=== PATIENT | female | born 1980 | race Caucasian/White ===

== ENCOUNTER 2016-11-08 13:47 | Inpatient (IN) | payer OTHER ==
[~2016-11-08] VITALS: Ht 160 cm; Wt 68.0 kg
--- NOTE | ~2016-11-08 | HC ---
[facility] [place] [address] CONSULTATION Name: CLAYTON JIN Room #: 542-P ADM IN M.R.#: [id number] Admission: 11/08/16 Attend Phys: Sixto Izquierdo MD Discharge: Date of : 78 Report #: [id number] THIS REPORT FOR: //name// CC: [facility] physician/PCP Sixto Izquierdo DATE OF SERVICE: 11/09/2016 DATE OF SERVICE: 11/09/2016 REFERRING PROVIDER: Sixto Izquierdo MD REASON FOR CONSULTATION: Abdominal pain and colitis. HISTORY OF PRESENT ILLNESS: The patient is a 36-year-old female with a history of chronic constipation and frequent urinary tract infections, who is on Keflex chronically, who presented to the Emergency Room yesterday with increasing abdominal pain. The patient uses tap water enemas as needed at home for chronic constipation and has only taken Dulcolax in the past for her complaints which she stopped due to it causing her to have headaches. The patient does have chronic back pain and is on tramadol and hydrocodone as well. While in the Emergency Room, the patient was evaluated with laboratories and a CT scan of the abdomen and pelvis and while her labs were within normal limits. Her CT scan showed thickening and inflammation of the mid transverse colon without perforation or abscess. In addition, there was some ureteral thickening along the upper bladder, which was unusual in presentation and was of unknown etiology. Nonetheless, the patient has been admitted for IV fluids and antibiotics and I have been asked to evaluate. PAST MEDICAL HISTORY: Chronic back pain, constipation and pelvic inflammatory disease, frequent urinary tract infections, prior hepatitis B. PAST SURGICAL HISTORY: Appendectomy, hysterectomy and tubal ligation. HOME MEDICATIONS: Tramadol, Keflex, [place], estradiol, Phenergan, Augmentin and Movantik. ALLERGIES: CLARITHROMYCIN, FLAGYL and MORPHINE. SOCIAL HISTORY: The patient does not utilize tobacco, alcohol or illicit drugs. FAMILY HISTORY: Reviewed and noncontributory; however, her sister did have 4 episodes of diverticulitis. REVIEW OF SYSTEMS: GENERAL: The patient states subjective fevers and chills at home, but no weight [facility] [address] [place] [address] CONSULTATION Name: CLAYTON JIN Abner Room #: 542-P [facility] IN M.R.#: [id number] Admission: 11/08/16 Attend Phys: Sixto Izquierdo MD Discharge: Date of : 78 Report #: [id number]. HEENT: No history of change in vision, change in hearing. NECK: No swelling or difficulty swallowing. HEART: No chest pain or palpitations. LUNGS: No cough or shortness of breath. ABDOMEN: Abdominal pain and constipation. GENITOURINARY: No dysuria or hematuria. ENDOCRINE: No polyuria or polydipsia. HEMATOLOGIC: No history of bleeding or easy bruising. EXTREMITIES: No history of weakness or limited range of motion. NEUROLOGIC: No history of syncope or near syncopal episodes. SKIN AND INTEGUMENT: No history of abnormal lesions or moles. PSYCHIATRIC: No history of anxiety or depression. PHYSICAL EXAMINATION: VITAL SIGNS: Temperature 36.7, pulse 98, respirations 16, blood pressure 94/59. GENERAL: Alert, in no acute distress. HEENT: Normocephalic, atraumatic. Pupils equal, round, reactive to light. NECK: Supple, without lymphadenopathy. Trachea midline. HEART: Regular rate and rhythm. LUNGS: Clear to auscultation bilaterally. ABDOMEN: Soft, nondistended. She does have minimal tenderness to palpation around the umbilicus, but does not have any guarding, rebound or peritoneal signs or symptoms and has normoactive bowel sounds. GENITOURINARY: Normal external female genitalia. EXTREMITIES: No clubbing, cyanosis or edema. NEUROLOGIC: Cranial nerves 2-12 are grossly intact. PSYCHIATRIC: Normal mood and affect. SKIN AND INTEGUMENT: No abnormal lesions or moles. LABORATORY AND X-RAY DATA: CBC shows white blood cell count of 8.8 thousand, hemoglobin 12.5, platelets 215,000. Differential on admission was largely normal. Wet prep was negative. Urinalysis was negative. Creatinine 0.8. Liver function enzymes are normal. Lipase is normal. CT scan of the abdomen and pelvis as per HPI shows constipation throughout the colon; however, there is focal inflammatory changes over 6 cm distance of the mid transverse colon without perforation or free air or abscess. There is inflammation of the urachus from the apex of the bladder to the umbilicus. ASSESSMENT AND PLAN: A 36-year-old female with what appears to be diverticulitis arising from a diverticulum seen on the coronal views of her CT scan with focal inflammatory changes. I see no evidence of perforation or abscess formation and as such will continue antibiotic therapy, IV fluid rehydration and she will likely improve with conservative therapy at this time. The patient should have gastroenterology evaluate, as she will necessitate colonoscopy in 6 weeks' time after resolution of her inflammation. If she does [address] [place] [address] CONSULTATION Name: CLAYTON JIN Room #: 542-P ADM IN M.R.#: [id number] Admission: 11/08/16 Attend Phys: Sixto Izquierdo MD Discharge: Date of : 78 Report #: [id number] decompensate, she may necessitate more urgent surgical intervention. At this time, I recommend continuation of conservative management as current. I sincerely appreciate this consult. I will follow closely and leave any further recommendations in the patient's chart as appropriate. <ELECTRONICALLY SIGNED> By: Tl Dougherty MD, FACS 11/10/16 1419 [id number] Tl Dougherty MD, FACS /nt
--- NOTE | ~2016-11-08 | HC ---
[facility] [place] [address] CONSULTATION Name: CLAYTON JIN Room #: 542-P ADM IN .R.#: [id number] Admission: 11/08/16 Attend Phys: Sixto Izquierdo MD Discharge: Date of : 78 Report #: [id number] THIS REPORT FOR: //name// CC: [facility] physician/PCP Sixto Izquierdo REASON FOR CONSULTATION: I was asked to evaluate concerning diverticulitis. HISTORY OF PRESENT ILLNESS: The patient was a 36-year-old who has a history of chronic constipation and recurrent urinary tract infections. She has been on suppressive antibiotics with cephalexin. She stated over the last 48 hours after straining at the stool, developed acute onset of diffuse abdominal pain. No nausea or vomiting. She has not had a stool yet. Denies any dysuria. Presents to the Emergency Room with significant abdominal pain. Laboratory studies were fairly unremarkable from the Emergency Room. CT scan imaging, however, showed transverse colon diverticulitis changes with some free fluid in the pelvis. Did not find anything consistent with an abscess. She is on Levaquin. She continues to have abdominal pain. ALLERGIES: MORPHINE, METRONIDAZOLE, CLARITHROMYCIN. MEDICATIONS: As noted on her OCT. She did receive 1 dose of Augmentin. PAST MEDICAL HISTORY: Recurrent urinary tract infections, endometriosis, pelvic inflammatory disease, hysterectomy with bilateral salpingo-oophorectomy, chronic constipation, pyelonephritis. SOCIAL HISTORY: Nonsmoker, no significant alcohol intake or HIV risk factors. She has 5 children. REVIEW OF SYSTEMS: No rashes, no headache, cough or sputum production. She does have some right-sided flank discomfort. PHYSICAL EXAMINATION: VITAL SIGNS: Afebrile and hemodynamically stable. GENERAL: She is alert and cooperative and pleasant, in some distress when tried to rollover in bed, otherwise stable. HEENT: Unremarkable. CHEST: Clear. HEART: Regular, without murmur. ABDOMEN: Diffusely tender with guarding. No definite rebound. Bowel sounds present. EXTREMITIES: Unremarkable. Mild right CVA tenderness. LABORATORY STUDIES: Sodium 141, potassium 3.8, bicarbonate 25, creatinine 0.8. Liver function test normal. Hemoglobin 12.5, white count 8.8, no bands, platelet count 215,000. Urinalysis unremarkable. [place] [address] CONSULTATION Name: CLAYTON JIN Room #: 542-P [facility] IN [facility].#: [id number] Admission: 11/08/16 Attend Phys: Sixto Izquierdo MD Discharge: Date of : 78 Report #: [id number] IMPRESSION: A 36-year-old with chronic constipation, diverticulitis changes with diffuse abdominal pain. Pain seems a bit out or proportion and to her laboratory studies. PLAN: Would recommend continuing IV antibiotic therapy to include both aerobic and anaerobic bacteria. Await GI evaluation. Would have General Surgery evaluate. <ELECTRONICALLY SIGNED> By: Itz Bolaños MD 11/09/16 [id number] Itz Bolaños MD /nt
[~2016-11-08 13:47] MED LIST: CIPROFLOXACIN500 M1 PO; DOXYCYCLINE 10100 MG PO; IBUPROFEN 200200 M1 PO; IBUPROFEN 800800 M1 PO; NOHOMEMEDICATIONS; NORCO 5-325 TA1 EACH PO; TRAMADOL 50 MG50 MG; ULTRAM 50MG TAB50 MG PO; XANAX 1 MG TABLE1 MG PO; ZOFRAN4 MG PO
[2016-11-08 13:51] VITALS: BP 123/84
[2016-11-08] MEDS ORDERED: KEFLEX250 MG (14:04)
[2016-11-08] MEDS ORDERED: TRAMADOL 50 MG50 MG PO (14:04)
[2016-11-08] MEDS ORDERED: NORCO 10-325 T1 EACH PO (14:05)
[2016-11-08] MEDS ORDERED: ESTRACE2 M3 PO (14:05)
[2016-11-08 15:15] LABS: ABSOLUTE NEUTROPHILS 6.7 thou/uL (1.4-8.2); BASOPHILS 0.3 % (0.0-2.0); EOSINOPHILS 1.2 % (0.0-3.0); HEMATOCRIT 40.8 % (37.0-47.0); HEMOGLOBIN 13.9 gm/dL (12.0-15.0); LYMPHOCYTES 20.9 % (24.0-44.0); MCH 30.8 pg (26.0-34.0); MCHC 34.1 g/dL (28.0-37.0); MCV 90.3 fL (80.0-100.0); MONOCYTES 7.9 % (1.0-8.0); PLATELET COUNT 231 thou/uL (150-400); POLYS 69.7 % (36.0-66.0); RBC 4.52 mil/uL (4.20-5.00); RDW 12.7 % (10.5-14.5); WBC 9.5 thou/uL (4.0-11.0)
[2016-11-08 15:16] LABS: MANUAL DIFF NO
[2016-11-08 15:23] LABS: CREATININE 0.8 mg/dL (0.6-1.0); POTASSIUM 4.1 mmol/L (3.5-5.1)
[2016-11-08 15:52] LABS: URINE BILIRUBIN NEGATIVE (Negative); URINE BLOOD NEGATIVE (Negative); URINE COLOR YELLOW; URINE GLUCOSE-RANDOM* NEGATIVE (Negative); URINE KETONES NEGATIVE (Negative); URINE NITRITE NEGATIVE (Negative); URINE PROTEIN (DIPSTICK) NEGATIVE (Negative); URINE UROBILINOGEN 0.2 E.U./dl (0.2-1.0)
[2016-11-08] MEDS ORDERED: AUGMENTIN 875875 MG PO (17:40)
[2016-11-08] MEDS ORDERED: PHENERGAN 25 MG25 M1 PO (17:40)
[2016-11-08] MEDS ORDERED: MOVANTIK12.5 MG PO (17:44)
[2016-11-08 19:04] VITALS: BP 114/78
[2016-11-09] VITALS: BP 97/57
[2016-11-09 04:00] VITALS: BP 102/67
[2016-11-09 05:50] LABS: HEMOGLOBIN 12.5 gm/dL (12.0-15.0); MCH 30.7 pg (26.0-34.0); MCHC 33.9 g/dL (28.0-37.0); MCV 90.7 fL (80.0-100.0); RBC 4.08 mil/uL (4.20-5.00); RDW 13.1 % (10.5-14.5); WBC 8.8 thou/uL (4.0-11.0)
[2016-11-09 06:24] LABS: ALBUMIN 2.9 g/dL (3.4-5.0); CALCIUM 8.5 mg/dL (8.5-10.1); CREATININE 0.8 mg/dL (0.6-1.0); POTASSIUM 3.8 mmol/L (3.5-5.1); TOTAL BILIRUBIN 0.4 mg/dL (<0.1-1.0); TOTAL PROTEIN 6.1 g/dL (6.4-8.2)
[2016-11-09 09:48] VITALS: BP 94/59
[2016-11-09 16:48] VITALS: BP 93/58
[2016-11-09 18:06] LABS: CHLAMYDIA TRACHOMATIS-PCR Negative (Negative); NEISSERIA GONORRHEA-PCR Negative (Negative)
[2016-11-09 20:15] VITALS: BP 99/49
[2016-11-10 04:00] VITALS: BP 86/45
[2016-11-10 07:10] LABS: HEMATOCRIT 34.1 % (37.0-47.0); HEMOGLOBIN 11.5 gm/dL (12.0-15.0); MCH 30.8 pg (26.0-34.0); MCHC 33.6 g/dL (28.0-37.0); MCV 91.7 fL (80.0-100.0); RBC 3.71 mil/uL (4.20-5.00); RDW 13.1 % (10.5-14.5); WBC 5.4 thou/uL (4.0-11.0)
[2016-11-10 07:22] LABS: ALBUMIN 2.6 g/dL (3.4-5.0); CALCIUM 8.2 mg/dL (8.5-10.1); CREATININE 0.7 mg/dL (0.6-1.0); POTASSIUM 3.9 mmol/L (3.5-5.1); TOTAL BILIRUBIN 0.2 mg/dL (<0.1-1.0); TOTAL PROTEIN 5.7 g/dL (6.4-8.2)
[2016-11-10 08:30] VITALS: BP 93/60
[2016-11-10 16:00] VITALS: BP 103/60
[2016-11-10 19:25] VITALS: BP 96/53
[2016-11-11 05:45] VITALS: BP 114/68
[2016-11-11 06:19] LABS: ABSOLUTE NEUTROPHILS 1.4 thou/uL (1.4-8.2); BASOPHILS 0.7 % (0.0-2.0); EOSINOPHILS 3.6 % (0.0-3.0); HEMATOCRIT 32.9 % (37.0-47.0); HEMOGLOBIN 11.3 gm/dL (12.0-15.0); MCH 31.2 pg (26.0-34.0); MCHC 34.3 g/dL (28.0-37.0); MCV 90.8 fL (80.0-100.0); MONOCYTES 7.7 % (1.0-8.0); PLATELET COUNT 185 thou/uL (150-400); RBC 3.62 mil/uL (4.20-5.00); RDW 12.9 % (10.5-14.5); WBC 3.7 thou/uL (4.0-11.0)
[2016-11-11 06:21] LABS: MANUAL DIFF NO
[2016-11-11 07:30] VITALS: BP 98/59
[2016-11-11] MEDS ORDERED: NORCO 10-325 T1 EACH PO (10:34)
[2016-11-11 15:54] VITALS: BP 98/59
[2016-11-11 18:02] VITALS: BP 98/59
== END 2016-11-11 18:03 | disposition home or self-care (01) | DRG 392 ==
LOC: ER 13:47 → EROBS 18:01 → 5S 18:01
PROVIDERS: Family Medicine; Internal Medicine Gastroenterology; Nurse Practitioner Adult Health; Physician Assistant
DX: K57.32 Diverticulitis of large intestine without perforation or abscess without bleeding (principal); N39.0 Urinary tract infection, site not specified; K59.09 Other constipation; G89.29 Other chronic pain; R12 Heartburn; M54.9 Dorsalgia, unspecified; Z88.1 Allergy status to other antibiotic agents; Z88.6 Allergy status to analgesic agent; Z88.8 Allergy status to other drugs, medicaments and biological substances; Z87.440 Personal history of urinary (tract) infections; Z90.722 Acquired absence of ovaries, bilateral; Z79.899 Other long term (current) drug therapy; Z90.710 Acquired absence of both cervix and uterus; Z90.49 Acquired absence of other specified parts of digestive tract
CPT/HCPCS: 10086

== ENCOUNTER 2017-06-06 12:27 | Emergency (ER) | payer OTHER ==
[~2017-06-06] VITALS: Ht 160 cm; Wt 67.1 kg
[~2017-06-06 12:27] MED LIST changes: +AUGMENTIN 875875 MG PO; +ESTRACE2 M3 PO; +KEFLEX250 MG; +MOVANTIK12.5 MG PO; +NORCO 10-325 T1 EACH PO; +PHENERGAN 25 MG25 M1 PO; +TRAMADOL 50 MG50 MG PO
[2017-06-06 13:31] LABS: ABSOLUTE NEUTROPHILS 2.2 thou/uL (1.4-8.2); BASOPHILS 0.8 % (0.0-2.0); EOSINOPHILS 2.1 % (0.0-3.0); HEMATOCRIT 41.9 % (37.0-47.0); LYMPHOCYTES 37.1 % (24.0-44.0); MCH 30.5 pg (26.0-34.0); MCHC 33.4 g/dL (28.0-37.0); MCV 91.3 fL (80.0-100.0); MONOCYTES 7.7 % (1.0-8.0); PLATELET COUNT 262 thou/uL (150-400); POLYS 52.3 % (36.0-66.0); RBC 4.59 mil/uL (4.20-5.00); RDW 12.9 % (10.5-14.5); WBC 4.2 thou/uL (4.0-11.0)
[2017-06-06 13:32] LABS: MANUAL DIFF NO
[2017-06-06 13:39] LABS: CALCIUM 9.3 mg/dL (8.5-10.1); CREATININE 0.9 mg/dL (0.6-1.0); POTASSIUM 4.3 mmol/L (3.5-5.1)
[2017-06-06 13:45] LABS: TOTAL BILIRUBIN 0.2 mg/dL (<0.1-1.0); TOTAL PROTEIN 7.4 g/dL (6.4-8.2)
[2017-06-06 13:56] LABS: URINE BILIRUBIN NEGATIVE (Negative); URINE BLOOD NEGATIVE (Negative); URINE COLOR YELLOW; URINE GLUCOSE-RANDOM* NEGATIVE (Negative); URINE KETONES NEGATIVE (Negative); URINE LEUKOCYTES-REFLEX NEGATIVE (Negative); URINE PROTEIN (DIPSTICK) NEGATIVE (Negative); URINE SPECIFIC GRAVITY 1.015 (1.003-1.035); URINE UROBILINOGEN 0.2 E.U./dl (0.2-1.0)
[2017-06-06 14:15] LABS: SSA (PROTEIN CONFIRMATORY) NEGATIVE (Negative)
[2017-06-06] MEDS ORDERED: SENNA8.6 MG PO (15:09)
[2017-06-06] MEDS ORDERED: MACROBID 100 M100 M1 PO (15:16)
== END 2017-06-06 15:26 | disposition home or self-care (01) ==
LOC: ER 12:27
PROVIDERS: Physician Assistant
DX: R10.9 Unspecified abdominal pain (principal); K59.00 Constipation, unspecified; N80.9 Endometriosis, unspecified; Z90.710 Acquired absence of both cervix and uterus; Z88.0 Allergy status to penicillin; Z88.6 Allergy status to analgesic agent

== ENCOUNTER 2018-01-29 14:22 | Emergency (ER) | payer OTHER ==
[~2018-01-29] VITALS: Ht 160 cm; Wt 71.2 kg
--- NOTE | ~2018-01-29 | EKG ---
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
[~2018-01-29 14:22] MED LIST changes: +MACROBID 100 M100 M1 PO; +SENNA8.6 MG PO
[2018-01-29 16:03] LABS: ABSOLUTE NEUTROPHILS 3.1 thou/uL (1.4-8.2); WBC 5.3 thou/uL (4.0-11.0)
[2018-01-29 16:05] LABS: BASOPHILS 0.6 % (0.0-2.0); EOSINOPHILS 1.1 % (0.0-3.0); HEMATOCRIT 41.9 % (37.0-47.0); HEMOGLOBIN 14.2 gm/dL (12.0-15.0); LYMPHOCYTES 33.7 % (24.0-44.0); MCH 30.9 pg (26.0-34.0); MONOCYTES 7.3 % (1.0-8.0); PLATELET COUNT 282 thou/uL (150-400); POLYS 57.3 % (36.0-66.0)
[2018-01-29 16:16] LABS: ANION GAP 7 mmol/L (7-16); BUN 10 mg/dL (7-18); CHLORIDE 104 mmol/L (98-107); CO2 29 mmol/L (21-32); CREATININE 0.8 mg/dL (0.6-1.0); GLUCOSE 89 mg/dL (74-106); POTASSIUM 4.3 mmol/L (3.5-5.1); SODIUM 140 mmol/L (136-145)
[2018-01-29 16:25] LABS: ALBUMIN 4.3 g/dL (3.4-5.0); SGOT 28 U/L (15-37); SGPT 23 U/L (30-65); TOTAL BILIRUBIN 0.3 mg/dL (<0.1-1.0); TOTAL PROTEIN 8.4 g/dL (6.4-8.2); TROPONIN-I <0.06 ng/mL (<0.06)
[2018-01-29] MEDS ORDERED: XANAX 0.5 MG0.5 M1 PO (16:47)
== END 2018-01-29 17:04 | disposition home or self-care (01) ==
LOC: ER 14:22
PROVIDERS: Emergency Medicine
DX: R07.9 Chest pain, unspecified (principal); F41.9 Anxiety disorder, unspecified; Z90.710 Acquired absence of both cervix and uterus; Z88.1 Allergy status to other antibiotic agents

== ENCOUNTER 2018-03-15 13:16 | Emergency (ER) | payer OTHER ==
[~2018-03-15] VITALS: Ht 160 cm; Wt 68.0 kg
[~2018-03-15 13:16] MED LIST changes: +XANAX 0.5 MG0.5 M1 PO
[2018-03-15 14:03] LABS: URINE BILIRUBIN NEGATIVE (Negative); URINE BLOOD TRACE (Negative); URINE CLARITY CLEAR; URINE COLOR YELLOW; URINE GLUCOSE-RANDOM* NEGATIVE (Negative); URINE KETONES 1+ (Negative); URINE LEUKOCYTES-REFLEX NEGATIVE (Negative); URINE NITRITE-REFLEX NEGATIVE (Negative); URINE PROTEIN (DIPSTICK) NEGATIVE (Negative); URINE SPECIFIC GRAVITY 1.025 (1.005-1.035); URINE UROBILINOGEN 0.2 E.U./dl (0.2-1.0)
[2018-03-15 14:13] LABS: ABSOLUTE NEUTROPHILS 6.6 thou/uL (1.4-8.2); BASOPHILS 0.3 % (0.0-2.0); HEMATOCRIT 44.8 % (37.0-47.0); HEMOGLOBIN 15.2 gm/dL (12.0-15.0); LYMPHOCYTES 14.8 % (24.0-44.0); MCH 30.8 pg (26.0-34.0); MCV 90.5 fL (80.0-100.0); MONOCYTES 7.1 % (1.0-8.0); PLATELET COUNT 296 thou/uL (150-400); POLYS 76.8 % (36.0-66.0); RBC 4.95 mil/uL (4.20-5.00); RDW 13.1 % (10.5-14.5); WBC 8.6 thou/uL (4.0-11.0)
[2018-03-15 14:55] LABS: CALCIUM 9.5 mg/dL (8.5-10.1); CREATININE 1.4 mg/dL (0.6-1.0); POTASSIUM 3.5 mmol/L (3.5-5.1)
[2018-03-15 14:58] LABS: ALBUMIN 4.1 g/dL (3.4-5.0); TOTAL BILIRUBIN 0.3 mg/dL (<0.1-1.0); TOTAL PROTEIN 7.8 g/dL (6.4-8.2)
[2018-03-15] MEDS ORDERED: REGLAN 10 MG TA10 MG PO (15:20)
[2018-03-15] MEDS ORDERED: ZOFRAN ODT4 MG PO (15:20)
== END 2018-03-15 16:16 | disposition home or self-care (01) ==
LOC: ER 13:16
PROVIDERS: Physician Assistant
DX: R11.2 Nausea with vomiting, unspecified (principal); N17.9 Acute kidney failure, unspecified; R51 Headache; N80.9 Endometriosis, unspecified; Z88.1 Allergy status to other antibiotic agents; Z88.8 Allergy status to other drugs, medicaments and biological substances; Z88.5 Allergy status to narcotic agent; Z90.710 Acquired absence of both cervix and uterus